=== PATIENT | male | born 1975 | race Caucasian/White ===

== ENCOUNTER 2018-08-15 19:13 | Emergency (ER) | payer OTHER, SELFPAY | END 2018-08-15 19:46 | disposition home or self-care (01) | LOC: ERS 19:13 | DX: K04.7 Periapical abscess without sinus (principal); K03.81 Cracked tooth; K02.9 Dental caries, unspecified; F41.9 Anxiety disorder, unspecified; I25.2 Old myocardial infarction; Z87.891 Personal history of nicotine dependence; Z79.899 Other long term (current) drug therapy | CPT/HCPCS: 99282 ==

== ENCOUNTER 2019-02-10 11:12 | Emergency (ER) | payer OTHER | END 2019-02-10 11:51 | disposition home or self-care (01) | LOC: ERS 11:12 | DX: K04.7 Periapical abscess without sinus (principal); K02.9 Dental caries, unspecified; I25.2 Old myocardial infarction; F41.9 Anxiety disorder, unspecified; Z87.891 Personal history of nicotine dependence; Z79.82 Long term (current) use of aspirin | CPT/HCPCS: 99282 ==

== ENCOUNTER 2019-06-14 16:44 | Emergency (ER) | payer OTHER, SELFPAY ==
[2019-06-14] MEDS ORDERED: diphenhydrAMINE 50 MG/ML VIAL ONE (17:39)
[2019-06-14] MEDS ORDERED: diphenhydrAMINE 50 MG CAP ONE (17:40)
== END 2019-06-14 17:48 | disposition home or self-care (01) ==
LOC: ERS 16:44
DX: S60.362A Insect bite (nonvenomous) of left thumb, initial encounter (principal); I25.2 Old myocardial infarction; F31.9 Bipolar disorder, unspecified; F43.10 Post-traumatic stress disorder, unspecified; F41.9 Anxiety disorder, unspecified; Z87.891 Personal history of nicotine dependence; Z79.82 Long term (current) use of aspirin; Z79.899 Other long term (current) drug therapy; W57.XXXA Bitten or stung by nonvenomous insect and other nonvenomous arthropods, initial encounter
CPT/HCPCS: 99282; J1200; Q0163

== ENCOUNTER 2019-07-20 15:39 | Emergency (ER) | payer SELFPAY | END 2019-07-20 16:55 | disposition home or self-care (01) | LOC: ERS 15:39 | DX: K02.9 Dental caries, unspecified (principal); K05.10 Chronic gingivitis, plaque induced; I25.2 Old myocardial infarction; F41.9 Anxiety disorder, unspecified; F31.9 Bipolar disorder, unspecified; Z87.891 Personal history of nicotine dependence | CPT/HCPCS: 99282 ==

== ENCOUNTER 2019-12-03 10:57 | Emergency (ER) | payer SELFPAY | END 2019-12-03 13:19 | disposition left against medical advice (07) | LOC: ERS 10:57 | DX: R30.0 Dysuria (principal); I25.2 Old myocardial infarction; F41.9 Anxiety disorder, unspecified; F31.9 Bipolar disorder, unspecified; F20.9 Schizophrenia, unspecified; Z87.891 Personal history of nicotine dependence | CPT/HCPCS: 99283 ==

== ENCOUNTER 2020-11-09 11:55 | Emergency (ER) | payer SELFPAY ==
[2020-11-09] MEDS ORDERED: Bupivacaine 0.5% 10 ML VIAL ONE (12:43)
== END 2020-11-09 12:30 | disposition home or self-care (01) ==
LOC: ERS 11:55
DX: K04.7 Periapical abscess without sinus (principal); K02.9 Dental caries, unspecified; K03.2 Erosion of teeth; I25.2 Old myocardial infarction; Z87.891 Personal history of nicotine dependence
CPT/HCPCS: 99282; J3490

== ENCOUNTER 2021-03-01 14:31 | Emergency (ER) | payer SELFPAY | END 2021-03-01 17:50 | disposition home or self-care (01) | LOC: ERS 14:31 | DX: K02.9 Dental caries, unspecified (principal); I25.2 Old myocardial infarction; Z87.891 Personal history of nicotine dependence | CPT/HCPCS: 99282 ==

== ENCOUNTER 2021-10-15 13:02 | Emergency (ER) | payer SELFPAY | END 2021-10-15 13:57 | disposition home or self-care (01) | LOC: ERS 13:02 | DX: K04.7 Periapical abscess without sinus (principal); K02.9 Dental caries, unspecified; I10 Essential (primary) hypertension; Z87.891 Personal history of nicotine dependence; I25.2 Old myocardial infarction | CPT/HCPCS: 99282 ==

== ENCOUNTER 2022-04-10 17:35 | Emergency (ER) | payer SELFPAY | END 2022-04-10 19:29 | disposition home or self-care (01) | LOC: ERS 17:35 | DX: K05.10 Chronic gingivitis, plaque induced (principal); I25.2 Old myocardial infarction; I10 Essential (primary) hypertension; Z87.891 Personal history of nicotine dependence | CPT/HCPCS: 99282 ==

== ENCOUNTER 2022-10-05 14:22 | Emergency (ER) | payer SELFPAY | END 2022-10-05 15:33 | disposition home or self-care (01) | LOC: ERS 14:22 | DX: K02.9 Dental caries, unspecified (principal); K04.7 Periapical abscess without sinus; I10 Essential (primary) hypertension; Z87.891 Personal history of nicotine dependence | CPT/HCPCS: 99282 ==

== ENCOUNTER 2024-07-17 10:11 | Emergency (ER) | payer OTHER, SELFPAY ==
[2024-07-17] MEDS ORDERED: Aspirin Chewable 81 MG TAB ONE (10:37)
[2024-07-17 10:51] LABS: #Basophils 0.05 10x3/uL (0.0-0.2); %Basophils 0.6 % (0.0-1.0); %Lymphocytes 27.6 % (21.0-51.0); %Monocytes 7.2 % (0.0-10.0); %Neutrophils 63.4 % (42.0-75.0); Hematocrit 49.1 % (42.0-52.0); Hemoglobin 16.7 g/dL (14.0-18.0); Mean Corpuscular Hemoglobin 29.9 pg (27.0-31.0); Mean Platelet Volume 10.7 fL (7.4-10.4); Platelet Count 231 10x3/uL (130-400); RBC Distribution Width 12.6 % (11.5-14.5); Red Blood Cell (RBC) Count 5.58 mill/uL (4.70-6.10)
[2024-07-17 11:30] LABS: ALT (SGPT) 29 U/L (8-55); AST (SGOT) 24 U/L (5-34); Alkaline Phosphatase 86 U/L (40-110); Anion Gap 13 mmol/L (10-20); BUN (Urea Nitrogen) 10 mg/dL (8.9-20.6); Bilirubin, Total 0.4 mg/dL (0.2-1.2); Calc. Creatinine Clearance 0 mL/min (70-130); Calcium 9.6 mg/dL (7.8-10.44); Carbon Dioxide 27 mmol/L (22-29); Chloride 104 mmol/L (98-107); Estimated GFR 98; Globulin 4.3 g/dL (2.4-3.5); Glucose 110 mg/dL (70-105); Lipase 177 U/L (8-78); Potassium 3.6 mmol/L (3.5-5.1); Protein, Total 8.3 g/dL (6.0-8.3); Sodium 140 mmol/L (136-145)
[2024-07-17 11:58] LABS: Troponin I Less than 0.010 ng/mL (< 0.028)
[2024-07-17 12:33] LABS: Bacteria/HPF None Seen HPF (None Seen); Bilirubin Negative (Negative); Blood, Urine Negative (Negative); CAUTI Indications for Culture Pelvic or flank pain; Clarity Clear (Clear); Glucose, Urine (Dipstick) Normal (Negative); Ketone, Urine Negative (Negative); Leukocyte Negative Leu/uL (Negative); Nitrite Negative (Negative); Protein, Urine (Dipstick) Negative (Neg-Trace); RBC/HPF 0-3 HPF (0-3); Specific Gravity, Urine 1.012 (1.002-1.036); Squamous Epithelial None Seen HPF (0-3); Urobilinogen Normal mg/dL (Less than 2); WBC/HPF 0-3 HPF (0-3)
[2024-07-17 12:35] LABS: Urine Culture Reflex No No
== END 2024-07-17 13:34 | disposition home or self-care (01) ==
LOC: ERS 10:11
DX: K04.7 Periapical abscess without sinus (principal); I10 Essential (primary) hypertension; F17.290 Nicotine dependence, other tobacco product, uncomplicated; Z55.0 Illiteracy and low-level literacy
CPT/HCPCS: 71045; 80053; 81001; 83690; 83880; 84484; 85025; 93005